=== PATIENT | male | born 1975 | race Caucasian/White ===

== ENCOUNTER 2021-01-08 11:43 | Inpatient (IN) ==
[2021-01-08 13:09] LABS: Basophils % 0.3 %; Eosinophils # 0.1 K/mcL (0.0-0.6); Eosinophils % 1.1 %; Hematocrit 47.9 % (37.5-50.1); Hemoglobin 15.9 g/dL (12.9-16.9); Immature Granulocytes % 0.5 % (0-4); Lymphocytes % 10.5 %; Mean Corpuscular HGB Conc 33.2 g/dL (31.6-35.5); Mean Corpuscular Hemoglobin 29.1 pg (28.0-33.3); Mean Corpuscular Volume 87.6 fL (83.0-100.0); Mean Platelet Volume 9.3 fL (9.4-12.4); Monocytes # 0.7 K/mcL (0.0-1.3); Monocytes % 7.2 %; Neutrophils # 7.4 K/mcL (1.6-8.9); Platelet Count 216 K/mcL (140-400); Red Blood Count 5.47 M/mcL (4.19-5.50); Red Cell Distribution Width 13.1 % (11.5-14.5); Segmented Neutrophils % 80.4 %; White Blood Count 9.3 K/mcL (4.3-11.1)
[2021-01-08 13:12] LABS: Bacteria,Urine Few per hpf (None-Few); Bilirubin,Urine Negative (Negative); Blood,Urine Negative (Negative); Clarity,Urine Clear (Clear); Color,Urine Yellow (Yellow); Glucose,Urine (UA) Normal (Normal); Ketones,Urine 60 mg/dL (Negative); Leukocyte Esterase,Urine Negative (Negative); Mucus,Urine Few per lpf (None-Few); Nitrite,Urine Negative (Negative); PH,Urine 5.5 pH Units (5.0-8.0); Protein,Urine 30 mg/dL (Neg-Trace); RBC,Urine 0-3 per hpf (0-3); Specific Gravity,Urine 1.029 (1.010-1.025); Urobilinogen,Urine Normal (Normal); WBC,Urine 0-3 per hpf (0-3)
[2021-01-08 13:18] LABS: Amphetamine Screen,Urine Positive ng/mL (Cutoff=1000); Barbiturate Screen,Urine Negative ng/mL (Cutoff=200); Benzodiazepines Screen,Urine Negative ng/mL (Cutoff=200); Cannabinoid Screen,Urine Negative ng/mL (Cutoff = 50); Cocaine Screen,Urine Negative ng/mL (Cutoff= 300); Opiate Screen,Urine Negative ng/mL (Cutoff=300); Phencyclidine Screen,Urine Negative ng/mL (Cutoff=25)
[2021-01-08 13:39] LABS: Acetaminophen < 10 mcg/mL (10-20); BUN/Creatinine Ratio 27 (6-26); Blood Urea Nitrogen 26 mg/dL (6-20); Calcium 8.8 mg/dL (8.6-10.3); Carbon Dioxide 22 mEq/L (23-29); Chloride 103 mEq/L (98-107); Chol/HDL Ratio 2.6 (0-4.9); Cholesterol 72 mg/dL (< 200); Ethanol < 10 mg/dL (Less than 10); Glucose 82 mg/dL (70-105); HDL Cholesterol 28 mg/dL (40-59); LDL Cholesterol,Calculated 34 mg/dL (< 100); Osmolality,Calculated 290 (280-300); Potassium 3.5 mEq/L (3.5-5.1); Salicylate < 2.5 mg/dL (15.0-30.0); Sodium 138 mEq/L (136-145); Triglycerides 49 mg/dL (< 150); eGFR For African Americans > 60 (> 60); eGFR For Non-African Americans > 60 (> 60)
[2021-01-08 14:30] LABS: Estimated Average Glucose 105 mg/dl; Hemoglobin A1C 5.3 %
[2021-01-08 16:22] LABS: Influenza A PCR Negative (Negative); Influenza B PCR Negative (Negative); Resp. Syncytial Virus PCR Negative (Negative)
[2021-01-08 16:32] LABS: SARS-CoV-2 by PCR (In House) Negative (Negative)
[2021-01-08] MEDS ORDERED: haloperidoL 5 MG TABLET PO PRN (16:51)
[2021-01-08] MEDS ORDERED: Haloperidol Lactate 5 MG/ML VIAL IM PRN (16:51)
[2021-01-08] MEDS ORDERED: *HR* LORazepam 2 MG/ML VIAL IM PRN (16:51)
[2021-01-08] MEDS ORDERED: *HR* LORazepam 1 MG TABLET PO PRN (16:51)
[2021-01-08] MEDS: hydrOXYzine pamoate 25 MG CAPSULE PO PRN (20:42)
[2021-01-08] MEDS: Ibuprofen 400 MG TABLET PO PRN (20:42)
[2021-01-08] MEDS: traZODone 50 MG TABLET PO PRN (20:42)
[2021-01-09] MEDS: Nicotine 21 MG PATCH.TD24 TD SCH ×2 (00:33→08:52)
[2021-01-09] MEDS ORDERED: Mag Hydrox/Al Hydrox/Simeth 30 ML UDC PO PRN (11:49)
[2021-01-09] MEDS ORDERED: MOM Conc 10 ML UD.LIQ PO PRN (11:49)
[2021-01-09] MEDS: traZODone 50 MG TABLET PO PRN (20:34)
[2021-01-10] MEDS: Nicotine 21 MG PATCH.TD24 TD SCH (08:57)
[2021-01-10] MEDS: Ibuprofen 400 MG TABLET PO PRN (17:28)
[2021-01-10] MEDS: hydrOXYzine pamoate 25 MG CAPSULE PO PRN (20:13)
[2021-01-10] MEDS: traZODone 50 MG TABLET PO PRN (20:13)
[2021-01-11] MEDS: Nicotine 21 MG PATCH.TD24 TD SCH (08:33)
[2021-01-11] MEDS ORDERED: FLU Vac QV 21-22 (6Month+)/PF 0.5 ML SYRINGE IM ONE (11:53)
[2021-01-11 19:57] VITALS: TEMP 98.6
[2021-01-11] MEDS: hydrOXYzine pamoate 25 MG CAPSULE PO PRN (21:01)
[2021-01-11] MEDS: traZODone 50 MG TABLET PO PRN (21:01)
[2021-01-11] MEDS: Ibuprofen 400 MG TABLET PO PRN (21:01)
[2021-01-12] MEDS: Nicotine 21 MG PATCH.TD24 TD SCH (09:07)
[2021-01-12 09:14] VITALS: O2SAT 98
[2021-01-12] MEDS: hydrOXYzine pamoate 25 MG CAPSULE PO PRN (20:17)
[2021-01-12] MEDS: traZODone 50 MG TABLET PO PRN (20:17)
[2021-01-12] MEDS: Ibuprofen 400 MG TABLET PO PRN (20:17)
[2021-01-13] MEDS: Nicotine 21 MG PATCH.TD24 TD SCH (09:01)
[2021-01-13 10:20] VITALS: BP 125/81; PULSE 81
== END 2021-01-13 17:35 | disposition home or self-care (01) | DRG 751 ==
LOC: EMEROOARM 11:43 → 1ANU 16:54
PROVIDERS: ADMIT Psychiatry & Neurology Psychiatry; ATTEND Psychiatry & Neurology Psychiatry